=== PATIENT | female | born 1990 | race Caucasian/White ===

== ENCOUNTER 2021-09-16 09:27 | Day surgery (SDC) | payer BC ==
[2021-09-16] MEDS ORDERED: Ondansetron 4 MG/2 ML SDV IV ONE (09:28)
[2021-09-16] MEDS ORDERED: Sodium Chloride 0.9% 10 ML Syringe FLUSH PRN (09:30)
[2021-09-16] MEDS ORDERED: Lactated Ringers 1,000 ML IV SCH (09:30)
[2021-09-16] MEDS ORDERED: Propofol 200 MG/20 ML SDV ONE (10:38)
[2021-09-16] MEDS ORDERED: Midazolam 1 MG/ML 2 ML SDV ONE (10:38)
== END 2021-09-16 12:15 | disposition home or self-care (01) ==
LOC: KA.SDS 09:27
PROVIDERS: ATTEND Family Medicine
DX: K58.1 Irritable bowel syndrome with constipation (principal); K63.89 Other specified diseases of intestine; K59.09 Other constipation; F32.9 Major depressive disorder, single episode, unspecified; F41.1 Generalized anxiety disorder; Z88.0 Allergy status to penicillin; Z88.5 Allergy status to narcotic agent; Z79.899 Other long term (current) drug therapy; Z79.811 Long term (current) use of aromatase inhibitors; Z79.1 Long term (current) use of non-steroidal anti-inflammatories (NSAID); Z90.49 Acquired absence of other specified parts of digestive tract; Z98.890 Other specified postprocedural states
CPT/HCPCS: 00811; 81025; J2250; J2405; J2704; J7120